=== PATIENT | female | born 1975 | race Caucasian/White ===

== ENCOUNTER 2016-11-22 19:21 | Emergency (ER) | payer OTHER, MEDICAID ==
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
[2016-11-22 20:36] VITALS: RESP 20
[2016-11-22 21:58] VITALS: BP 132/68; PULSE 74; TEMP 98.1; O2SAT 96
== END 2016-11-22 21:59 | disposition home or self-care (01) ==
LOC: CED 19:21
DX: S16.1XXA Strain of muscle, fascia and tendon at neck level, initial encounter (principal); F17.200 Nicotine dependence, unspecified, uncomplicated; V49.3XXA Car occupant (driver) (passenger) injured in unspecified nontraffic accident, initial encounter; Y92.410 Unspecified street and highway as the place of occurrence of the external cause
CPT/HCPCS: 72125-PO